=== PATIENT | female | born 1940 | race Caucasian/White ===

== ENCOUNTER 2017-02-06 10:20 | Day surgery (SDC) | payer MEDICARE, OTHER ==
[~2017-02-06] VITALS: Ht 160 cm; Wt 77.1 kg
[~2017-02-06 10:20] MED LIST: ALEN70TA51 PO; ASPI-973 PO; ATEN25TA PO; BUTA1CAP42 PO; CALC-140 PO; CITA40TA13 PO; LEVO200T6 PO; Lactated Ringer's 1,000 ML IV ONE; MULT-1018 PO; NITR0.4T SL; ROSU40TA PO; VIT1CAPS8 PO
[2017-02-06] MEDS ORDERED: fentaNYL-PF 50 mCg/mL 2 mL Inj ONE (10:21)
[2017-02-06] MEDS ORDERED: Propofol 10,000 mCg/mL 20 mL Inj ONE (10:21)
[2017-02-06] MEDS ORDERED: Esmolol 10,000 mCg/mL 10 mL Inj ONE (10:21)
[2017-02-06 11:11] VITALS: BP 136/70; PULSE 64; O2SAT 96
[2017-02-06] MEDS ORDERED: Lactated Ringer's 1,000 ML IV SCH (11:31)
--- NOTE | 2017-02-06 11:31 | PCM.HPANE ---
Patient Data Surgeon Admitting Provider: Attending Provider:Farzad Shaffer MD Primary Care Physician:Angel Luis Burch MD Other Provider:Carl Sarabia Anesthesia Reason for Visit Dilated Pancreatic Duct Ht/WT & BMI Body Mass Index Allergies Coded Allergies: Penicillins (Verified Allergy, Unknown, 06/27/16) Past Anesthesia History Anesthesia History: Denies:: Abnormal Airway, Anesthesia Reactions, Difficult Intubation, Fam Anesthesia Reaction, Fam Malignant Hypertherm, Malignant Hyperthermia Diabetes History Hx Diabetes?: No MRSA MRSA: No Medications Blood Thinner: Aspirin Reported Medications Nitroglycerin SL (Nitrostat)0.4 Mg Tab.subl0.4 Mg SL Q5MIN PRN For Chest Pain # 1 BOTTLE 05/15/16 Multivitamin (Multi Vitamin Daily)1 Each Tablet1 Each PO DAILY 30 Days Ref 0 05/15/16 Alendronate (Binosto)70 Mg Tablet.eff70 Mg PO WEEKLY 05/15/16 Levothyroxine 200 Mcg Ygbutm889 Mcg PO DAILY Ref 0 05/15/16 Atenolol 25 Mg Flsglx90 Mg PO DAILY #30 TABLET Ref 0 05/15/16 Aspirin 81 Mg Eifuxp11 Mg PO DAILY Ref 0 10/05/15 Vit C/Vit E/Lutein/Min/Joint Base Mdl-3 (Ocuvite Softgel)1 Each Capsule1 Each PO DAILY 10/05/15 Calcium Carbonate/Vitamin D3 (Calcium + Vitamin D Tablet)1 Each Tablet2 Each PO DAILY 10/05/15 Butalbital/Acetamin/Caff/Cod [id number] mg 1 Each Capsule1 Capsule PO Q4H PRN For Pain Ref 0 10/05/15 Rosuvastatin Calcium (Crestor)40 Mg Qdzime07 Mg PO DAILY 30 Days Ref 0 10/05/15 Citalopram 40 Mg Pwdszb59 Mg PO DAILY 30 Days Ref 0 10/05/15 History History of ENT Problems?: Yes HEENT History: Positive for:: Cataracts (removed) Denies:: Abnormal Airway Difficult Intubation Dysphagia Hearing Problem Sinus Problem Denture Type: None Teeth Condition: Within Normal Limits Hx of Heart Problems?: Yes Cardiovascular History: Positive for:: Cardiac Surgery (stent LAD) Chest Pain Congestive Heart Failure Edema (ankle) Hypertension Denies:: AICD Atrial Fibrillation Heart Murmur Irregular Heartbeat Pacemaker Valvular Heart Disease Hx of Respiratory Problem?: No Respiratory History: Positive for:: Pneumonia Denies:: Asthma COPD Cough Dyspnea Hemoptysis Tuberculosis Hx Neurologic Problems?: No Neurological History: Positive for:: Headaches Denies:: CVA Dementia Hx of GI Problems?: Yes Hx of Problems?: No Female Hx: Denies:: Currently (POST MENAPAUSE) Hx Musculoskeletal Problems?: Yes Musculoskeletal History: Positive for:: Musculoskeletal Trauma (LEFT ANKLE FRACTURE) Denies:: Joint Replacement Hx of Psycho/Social Problems?: No Psycho Social History: Positive for:: Hx Depression Denies:: Anxiety Hx Surgeries?: Yes (TONSILS,STENT) Hx Any Other Health Problems?: No Other History: Positive for:: Thyroid Disease Denies:: Cancer History Blood Transfusions: Denies:: Blood Transfuse Reaction Blood Transfusions Hx Diabetes: No Hx Alcohol Use: NoHx Substance Use: No Smoking Status: Current Every Day Smoker Have You Smoked inLast 12 mo: Yes Stop/Bang Risk Assessment Category Category 1A: Patient has history of documented sleep apnea, and HAS NOT received any narcotic, sedative or anesthesia administration during this stay. Category 1B: Patient has history of documented sleep apnea, and HAS received any narcotic , sedative or anesthesia administration during this stay Category 2: Patient has SUSPECTED Obstructive Sleep Apnea, and HAS received any narcotic , sedative or anesthesia administration during this stay. Category 3: Patient has SUSPECTED Obstructive Sleep Apnea and HAS NOT received narcotic, sedative or anesthesia administration during this stay. Category 4: Outpatient in Procedural Areas with known sleep apnea or who screen positive for High Risk via the STOP/BANG questionnaire. Exam Exam General Appearance: Alert HEENT/AIRWAY: MP 3, Neck Movement (from,3 fb) Lungs: Clear to Auscultation Heart: Regular Rate/Rhythm Plan Impression Patient chart reviewed, patient interviewed and anesthestic plan with risks, benefits, and alternatives discussed, and informed consent obtained. NPO per Anesth. Guidelines: Yes ASA Physical Status: ASA3 Severe Disease Anesthetic Plan: MAC Bene/Risks/Altern/Consents: Yes HP Complete Prior to Induction: Yes Madi Will MD Feb 06, 2017 11:07
[2017-02-06] MEDS ORDERED: Ondansetron 2 mg/mL 2 mL Inj IVPUSH PRN (11:35)
[2017-02-06] MEDS ORDERED: MetoCLOpramide 5 mg/mL 2 mL Inj IVPUSH PRN (11:35)
[2017-02-06 12:29] VITALS: BP 138/68; PULSE 63; RESP 12; O2SAT 95
[2017-02-06 12:39] VITALS: BP 138/68; PULSE 63; RESP 16; O2SAT 97
--- NOTE | 2017-02-06 12:44 | PCM.ANEP1 ---
Post Anesthesia PACU Phase 1 Assessment Vital Signs Vital Signs Date Time Temp Pulse Resp B/P Pulse Ox O2 Delivery O2 Flow Rate FiO2 02/06/17 12:29 63 12 138/68 95 Room Air 02/06/17 11:11 36.7 64 136/70 96 Room Air Anesthetic Administered: MAC Level of Alertness: Awake, talking PENA's with Equal Strength: Yes Pain: No Nausea or Vomiting: No CV Function & Hydration Stable: Yes Airway Device: Oxygen Delivery: Nasal Cannula Lungs: Clear to Auscultation Dermatome Level: Full Sensation PACU Phase 2 Assessment Complications: No Follow up Care: N/A Patient Instructions Provided: N/A Madi Will MD Feb 06, 2017 12:44
[2017-02-06 12:49] VITALS: BP 128/66; PULSE 66; RESP 16; O2SAT 98
[2017-02-07] MEDS ORDERED: Lactated Ringer's 1,000 ML IV ONE (06:00)
--- NOTE | 2017-02-14 02:06 | ENDO ---
[address] [address] ENDOSCOPY PROCEDURE PATIENT: WM THOMPSON : 1940 MR#: [id number] ADMIT: 02/06/2017 JOB ID: [id number] DATE OF SERVICE: 02/06/2017 PROCEDURE: Endoscopic Ultrasound INDICATION: Dilated pancreatic and bile duct. Please see anesthesia note for details regarding ASA classification, Mallampati score, and medications. INSTRUMENTS USED: GF-UCT 180 linear echoendoscope as well as a TJF-Q180 side-viewing duodenal scope. PROCEDURE DETAILS: After informed consent was obtained, the patient was brought to the GI suite, where she was placed on oxygen via nasal cannula and monitored with continuous pulse oximeter, telemetry, and blood pressure monitoring. A time-out was performed. Then, she was placed in a left lateral decubitus position. Medications were administered for sedation. The standard linear echoendoscope was introduced through the bite block and advanced without difficulty to the second portion of the duodenum. Linear echoendoscopic findings demonstrated the followin. The common bile duct was dilated in the distal portion to 9.1 mm. No filling defects were seen. I was able to follow this to the ampulla where no mass lesions were seen. The pancreatic duct in the head of the pancreas measured approximately 3.1 mm. However distally in the body of the stomach it measured approximately 6.1 mm. In the tail of the pancreas, the pancreatic duct appeared to be normal in course and caliber. No obvious lesions were appreciated in the pancreas. The pancreatic parenchyma was slightly hypoechoic. Near the head of the pancreas there was a focal area that was slightly hypoechoic with what appeared to be debris within this hypoechoic area. However, on endoscopic visualization, this area appeared to be consistent with a duodenal diverticulum that was noted in the second portion of the duodenum. 2. Portal vein was identified and appeared normal with flow. 3. Superior mesenteric artery was seen, appeared normal. The splenic artery and vein appeared to be normal. 4. The celiac axis appeared unremarkable. 5. Examined portions of the left lobe of the liver were unremarkable. 6. The left adrenal gland was identified and appeared unremarkable. 7. Examined portions of the spleen appeared normal. IMPRESSION: 1. Dilated pancreatic and bile duct without any obvious mass lesion in the ampulla or pancreas identified. 2. Fatty appearing pancreas. A side-viewing duodenal scope was advanced into the second portion of the duodenum without difficulty. At the expected site of the ampulla, there was a large diverticulum which contained a significant amount of debris. I could not visualize the ampulla endoscopically. IMPRESSION: Large duodenal diverticulum with food debris. RECOMMENDATIONS: Recommend repeat cross-sectional imaging in three months and continue to follow LFTs. COMPLICATIONS: None. ESTIMATED BLOOD LOSS: Zero. MTDD
== END 2017-02-06 23:59 | disposition home or self-care (01) ==
LOC: END 10:20
PROVIDERS: ATTEND Internal Medicine Gastroenterology
DX: K86.89 Other specified diseases of pancreas (principal); R91.8 Other nonspecific abnormal finding of lung field; I10 Essential (primary) hypertension; I25.10 Atherosclerotic heart disease of native coronary artery without angina pectoris; E03.9 Hypothyroidism, unspecified; E78.2 Mixed hyperlipidemia; R09.89 Other specified symptoms and signs involving the circulatory and respiratory systems; I73.9 Peripheral vascular disease, unspecified; F17.210 Nicotine dependence, cigarettes, uncomplicated; Z79.82 Long term (current) use of aspirin; Z95.5 Presence of coronary angioplasty implant and graft
CPT/HCPCS: 43237; J2250; J3010; J7120